=== PATIENT | male | born 1985 | race Asian ===

== ENCOUNTER → 2017-01-02 | Outpatient (CLI) | payer OTHER ==
--- NOTE | 2017-01-05 18:19 | POLYSOMNOGRAPH REPORT ---
CLINICAL DATA: 31-year-old male with BMI of 23.[address] Chen for evaluation of possible sleep apnea. His girlfriend states that he snores within 30 minutes of falling asleep and he does have apneic episodes. On the evening of 01/02/2017, a home sleep apnea test was performed using a [employer] type 3 monitor. RECORDING RESULTS: Total recording time was 10 hours. The patient's estimated sleep time and the patient monitoring time was 9.4 hours. RESPIRATORY DATA: Mild sleep apnea was documented. The VERNELL was 10.3. There were 10 obstructive, 4 mixed, and 7 central apneic episodes. There were 76 hypopneic episodes. The longest respiratory event was 46 seconds. OXIMETRY DATA: Transient hypoxemia was seen. Oxygen herminia was 84%. Mean saturation was 94%. Time below 89% was 1 minute. HEART RATE DATA: Heart rates ranged from 58-79 beats per minute. SNORING DATE: Snoring was recorded throughout the night. IMPRESSION: Mild sleep apnea/hypopnea with an VERNELL of 10.3. RECOMMENDATIONS: The patient may benefit from weight loss, use of an oral appliance, or a repeat sleep study with CPAP. Clinical correlation is needed. LEXIE
== END | disposition home or self-care (01) ==
LOC: C.NEUR 10:28
PROVIDERS: ATTEND Surgery Vascular Surgery
DX: G47.30 Sleep apnea, unspecified (principal); R06.83 Snoring